=== PATIENT | male | born 1990 | race Two or more races ===

== ENCOUNTER 2016-08-04 19:15 | Emergency (ER) | payer OTHER ==
[~2016-08-04] VITALS: Ht 162.6 cm; Wt 99.8 kg
--- NOTE | 2016-08-04 21:00 | NUR ---
BIB RA FROM HOME FOR ANXIETY/PALPITATIONS, ABLE TO VERBALIZE NEEDS, A/O X4, PLACED ON MONITOR, NO OTHER MEDICAL COMPLAINTS, MD AT BEDSIDE UPON ARRIVAL, WILL CONTINUE TO MONITOR CLOSELY.
[2016-08-04] MEDS ORDERED: IV NS 0.9% 1,000 ML ONE (22:01)
[2016-08-04] MEDS ORDERED: IV SET PRIMARY 1 EA INFUS.SET MC ONE (22:01)
[2016-08-04] MEDS ORDERED: IV SET PRIMARY PUMP SET 1 EA INFUS.SET MC ONE (22:02)
[2016-08-04] MEDS: IV NS 0.9% 1,000 ML BAG IV ONE (22:15)
[2016-08-04 22:32] LABS: HEMATOCRIT 46 % (39-51); HEMOGLOBIN 15.5 g/dL (13.5-17.5); LYMPHOCYTES # (AUTO) 1.4 /CMM (0.8-4.8); LYMPHOCYTES % (AUTO) 7.3 % (20.0-44.0); MEAN CORPUSCULAR HEMOGLOBIN 30 PG (26.0-33.0); MEAN CORPUSCULAR HGB CONC 34 g/dl (31.0-36.0); MEAN CORPUSCULAR VOLUME 89 fL (80-96); MONOCYTES # (AUTO) 0.5 /CMM (0.1-1.30); MONOCYTES % (AUTO) 2.8 % (2.0-12.0); NEUTROPHILS % (AUTO) 89.9 % (43.0-81.0); PLATELET COUNT (AUTO) 280 /CMM (150-450); RDW COEFFICIENT OF VARIATION 12.1 (11.5-15.0); RED BLOOD CELL COUNT(AUTO) 5.18 MIL/uL (4.5-6.0)
[2016-08-04 23:42] LABS: APPEARANCE,URINE CLEAR (CLEAR); BILIRUBIN,URINE NEGATIVE (NEGATIVE); BLOOD, URINE NEGATIVE Ery/uL (NEGATIVE); COLOR,URINE YELLOW (YELLOW); KETONES,URINE NEGATIVE (NEGATIVE); LEUKOCYTE ESTERASE ,URINE NEGATIVE (NEGATIVE); NITRITE, URINE NEGATIVE (NEGATIVE); PROTEIN,URINE TRACE mg/dl (NEGATIVE); UGLUCOSE NEGATIVE (NEGATIVE)
[2016-08-04 23:46] LABS: CANNABINOID, URINE POSITIVE (NEGATIVE); PHENCYCLIDINE SCREEN,URINE NEGATIVE (NEGATIVE)
[2016-08-04 23:53] LABS: ADD URINE CULTURE NO; BACTERIA,URINE None seen /HPF (None Seen); RBC,URINE 0-2 /HPF (0-2); SQUAMOUS EPITHELIAL CELL,UR Rare /HPF (None Seen); WBC,URINE 0-2 /HPF (0-3)
--- NOTE | 2016-08-05 00:35 | NUR ---
ASSUMED D/C CARE ONLY AT THIS TIME ON BEHALF PRIMARY NURSE [place]. Patient discharged to home in stable condition. Written and verbal after care instructions given. Patient verbalizes understanding of instruction. IV removed. Catheter intact and site benign. Pressure and 4x4 applied to site. No bleeding noted. Ambulatory with a steady gait
[2016-08-05 00:37] VITALS: BP 129/78
== END 2016-08-05 00:37 | disposition home or self-care (01) ==
LOC: ER 19:19
DX: R11.2 Nausea with vomiting, unspecified (principal); R94.6 Abnormal results of thyroid function studies
CPT/HCPCS: 36415; 71010-TC; 80305; 81000-TC; 84443-TC; 85025-TC; A4606; J7030; Z7610